=== PATIENT | male | born 1980 | race Caucasian/White ===

== ENCOUNTER 2019-04-22 19:05 | Outpatient (CLI) | payer OTHER | END 2019-04-22 19:06 | disposition EMS.NT | LOC: EMS 19:05 | PROVIDERS: ATTEND Surgery | DX: M25.562 Pain in left knee (principal); V59.9XXA Occupant (driver) (passenger) of pick-up truck or van injured in unspecified traffic accident, initial encounter; Y92.410 Unspecified street and highway as the place of occurrence of the external cause ==

== ENCOUNTER 2019-04-22 20:37 | Emergency (ER) | payer OTHER ==
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
[2019-04-22] MEDS ORDERED: IBUPROFEN 600 MG TABLET PO STA (22:21)
[2019-04-22] MEDS ORDERED: ACETAMINOPHEN 325 MG TABLET PO STA (22:21)
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
[2019-04-23 00:14] VITALS: BP 124/76
== END 2019-04-23 00:01 | disposition home or self-care (01) ==
LOC: ED 20:37
DX: S06.0X0A Concussion without loss of consciousness, initial encounter (principal); S20.212A Contusion of left front wall of thorax, initial encounter; M54.2 Cervicalgia; V53.5XXA Driver of pick-up truck or van injured in collision with car, pick-up truck or van in traffic accident, initial encounter; Y92.410 Unspecified street and highway as the place of occurrence of the external cause
CPT/HCPCS: 70450; 71046; 72125; 99284; A9270

== ENCOUNTER 2020-05-18 13:54 | Outpatient (CLI) | payer OTHER ==
[2020-05-18 15:02] VITALS: BP 115/86
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
== END 2020-05-18 13:55 | disposition home or self-care (01) ==
LOC: SC 13:54
PROVIDERS: ATTEND Nurse Practitioner Family
DX: R06.83 Snoring (principal); G47.8 Other sleep disorders; G47.10 Hypersomnia, unspecified; E66.3 Overweight; Z68.28 Body mass index [BMI] 28.0-28.9, adult
CPT/HCPCS: 99204; 99212

== ENCOUNTER 2020-06-17 19:23 | Outpatient (CLI) | payer OTHER | END 2020-06-17 19:24 | disposition home or self-care (01) | LOC: SC 19:23 | PROVIDERS: ATTEND Nurse Practitioner Family | DX: R06.83 Snoring (principal); G47.10 Hypersomnia, unspecified; G47.8 Other sleep disorders; E66.3 Overweight; Z68.28 Body mass index [BMI] 28.0-28.9, adult | CPT/HCPCS: 95810 ==

== ENCOUNTER 2020-06-22 08:58 | Outpatient (CLI) | payer OTHER ==
--- NOTE | 2020-06-22 09:35 | SLEEP CARE CONSULTATION ---
Information from patient questionnaire entered by Mayelin Dao. I have reviewed and concur with the information entered by Mayelin Dao. This document represents the service I personally performed and the decisions made by me, Ivon Serrano MD, [facility]. History of Present Illness Service Date and Time: 06/22/2020 0858 Initial [place] Sleepiness Scale score: 15 (in 2019) Additional HPI information: HPI: Mr. Jimenez returns today for a follow up of the sleep study he had on 06/17/2020. The polysomnography showed that the patient had normal sleep efficiency. The sleep architecture was normal as well. Respiratory monitoring showed no significant sleep disordered breathing AHI = 2.5) or hypoxia (jossie oxygen saturation of 88% and only 0.1% to the total sleep time was spent with oxygen saturation below 90%). The few respiratory events occurred only during supine sleep (supine AHI = 5.3; non-supine = 0.00). Snore was light to moderate in intensity. There was no significant periodic leg movement of sleep. Cardiac rhythm was normal sinus rhythm without significant arrhythmia. No abnormal behavior (parasomnia) observed during the night. The patient was informed of these findings. I explained to him that the sleep study was normal. He agrees that he slept unusually well that night. At home he complains of waking up during the night. His sleep-wake schedule is regulargoing to bed at 11:30 and waking up between 5:30 and 6:30 am. He takes melatonin. Sleep Study - Results Type of Sleep Study: Polysomnography Prior sleep studies: No Allergies and Home Medications Drug allergies reviewed: Yes Home medication list reviewed: Yes Review of Systems Review of systems same as previous: Yes Physical Exam Height: 5 ft 8 in Weight: 190 lb Body Mass Index: 28.8 BMI Classification: Overweight Impression and Plan IMPRESSION: 1. Insomnia, not explained by sleep disrupting conditions. He also sleeps well during the sleep study. It is not clear why he wakes up during the night. He does look at the clock during the night which could increase the awareness and prolong the awakenings. The few respiratory events during supine could also wake him up. PLAN: 1. Avoid sleeping supine. 2. Avoid weight gain. 3. Avoid looking at the clock during the night. The clock should be put away so that he cannot see it. 4. Maintain the good sleep-wake schedule. 5. Return for follow up on as needed basis. Visit Type: In Office Time Spent with Patient (minutes): 15 Provider Statement: I spent 100% of the Face to Face Visit with the patient with greater than 50% spent counseling the patient and coordination of care.
== END 2020-06-22 08:59 | disposition home or self-care (01) ==
LOC: SC 08:58
PROVIDERS: ATTEND Internal Medicine Pulmonary Disease
DX: G47.00 Insomnia, unspecified (principal); R06.83 Snoring; E66.3 Overweight; Z68.28 Body mass index [BMI] 28.0-28.9, adult
CPT/HCPCS: 99212; 99213

== ENCOUNTER 2021-11-01 09:33 | Outpatient (CLI) | payer OTHER ==
--- NOTE | 2021-11-02 08:58 | MRI Report ---
PROCEDURE: Brain W/O INDICATIONS: PERSONAL HIST OF TRAUMATIC BRAIN INJURY TECHNIQUE: Noncontrast axial T1 spin echo, axial T2 fast spin echo, sagittal and axial FLAIR, coronal T2 fast sp in echo, axial gradient echo, axial diffusion and ADC through the brain. COMPARISON: None. FINDINGS: Image quality: Excellent. CSF Spaces: Basal cisterns are patent. No extra-axial fluid collections. Ventricles are normal in size and shape. Brain: No intracranial masses or hemorrhage. Mccrary/white matter interface is normal. Brainstem appe ars normal. Diffusion-weighted images demonstrate no acute ischemic insult. No chronic ischemic ins ults. Normal intravascular flow voids are present. Skull and face: Calvarium has normal marrow signal. Orbits appear normal. Sinuses: Sinuses and mastoids are clear. IMPRESSION: Normal MRI of the brain. Reviewed by: Chandana Dugan MD on 11/02/2021 8:56 AM [facility] Approved by: Chandana Dugan MD on 11/02/2021 8:56 AM [facility] Station ID: [id number]
== END 2021-11-01 09:34 | disposition home or self-care (01) ==
LOC: DI 09:33
DX: Z87.820 Personal history of traumatic brain injury (principal)